=== PATIENT | male | born 1965 | race Caucasian/White ===

== ENCOUNTER 2017-02-05 21:16 | Emergency (ER) | payer MEDICAID ==
[~2017-02-05] VITALS: Ht 167.6 cm; Wt 72.0 kg
[2017-02-05] MEDS ORDERED: ONDANSETRON HCL 4MG/2ML VIAL IV STA (22:35)
[2017-02-05 22:55] LABS: CHLORIDE 99 mEq/L (98-107); INDEX HEMOLYSI 1 (1-3); INDEX ICTERIC 1 (1-4); INDEX LIPEMIC 1 (1-3)
[2017-02-05 22:56] LABS: BASOPHILS % 0.9 % (0.0-2.0); EOSINOPHILS % 5.9 % (0.0-5.0); HEMATOCRIT. 43.2 % (42.0-52.0); HEMOGLOBIN. 14.7 g/dL (14.0-18.0); LYMPHOCYTES % 18.9 % (20.0-50.0); MEAN CORPUSCULAR HEMOGLOBIN 29.7 pg (28.0-32.0); MEAN CORPUSCULAR HGB CONC 34.1 g/dL (31.0-37.0); MEAN CORPUSCULAR VOLUME 87.2 fL (80.0-94.0); MEAN PLATELET VOLUME 8.7 fl (7.4-10.4); MONOCYTES % 6.3 % (2.0-8.0); PLATELET 264 x1000/uL (130-400); RED BLOOD CELL COUNT 4.95 mill/uL (4.7-6.1); RED CELL DISTRIBUTION WIDTH 12.9 % (11.6-14.6); WHITE BLOOD COUNT 15.2 x1000/uL (4.5-11.0)
[2017-02-05 22:58] LABS: ALBUMIN 3.5 g/dL (3.4-5.0); CALCIUM 8.8 mg/dL (8.5-10.1); LIPASE 226 IU/L (73-393)
[2017-02-05 22:59] LABS: ANION GAP 13; CARBON DIOXIDE 28 mEq/L (21-32); UREA NITROGEN BLOOD 12 mg/dL (7-21)
[2017-02-05 23:04] LABS: ALANINE AMINOTRANSFERASE 34 IU/L (13-61); BETA HYDROXYBUTYRATE 0.1 mMol/L (0.0-0.3); eGFR > 60 mL/min (>60)
[2017-02-05 23:06] LABS: TROPONIN I < 0.02 ng/mL (0.00-0.04)
[2017-02-05 23:25] VITALS: BP 150/40
[2017-02-06] MEDS ORDERED: INSULIN REGULAR (HUMULIN R) 300UNITS/3ML SUBCUT ONE (00:15)
== END 2017-02-06 00:40 | disposition home or self-care (01) ==
LOC: ER 21:17
DX: E11.65 Type 2 diabetes mellitus with hyperglycemia (principal); H54.42 Blindness, left eye, normal vision right eye; D72.829 Elevated white blood cell count, unspecified; G40.909 Epilepsy, unspecified, not intractable, without status epilepticus
CPT/HCPCS: 36415; 80053; 82010; 83690; 84484; 85025; 93005; 96372; 96374; 99285; G0482; J1815; J2405; Z7610